=== PATIENT | male | born 1995 | race African-American/Black ===

== ENCOUNTER 2023-12-20 21:54 | Emergency (ER) | payer MEDICAID ==
[~2023-12-20] VITALS: Ht 172.7 cm; Wt 54.4 kg
[2023-12-20 21:56] VITALS: BP_SYST 120; PULSE 110; RESP 22; TEMP 98; O2SAT 92
[2023-12-20] MEDS ORDERED: ALBMDI INH (22:27)
[2023-12-20] MEDS ORDERED: PRED20TA PO (22:27)
[2023-12-20 22:36] VITALS: BP_SYST 121; PULSE 101; RESP 22; TEMP 98; O2SAT 93
== END 2023-12-20 22:37 | disposition home or self-care (01) ==
LOC: SED 21:54
DX: J45.901 Unspecified asthma with (acute) exacerbation (principal); Z79.899 Other long term (current) drug therapy
CPT/HCPCS: 99283

== ENCOUNTER 2023-12-21 11:30 | Emergency (ER) | payer MEDICAID ==
[~2023-12-21] VITALS: Ht 175.3 cm; Wt 63.5 kg
[~2023-12-21 11:30] MED LIST: ALBMDI INH; PRED20TA PO
[2023-12-21 11:40] VITALS: BP_SYST 129; PULSE 88; RESP 28; TEMP 98; O2SAT 86
[2023-12-21] MEDS: ALBUTEROL SULFATE 0.083% 2.5 MG/3 ML VIAL.NEB INH ONE (11:59)
[2023-12-21] MEDS: IPRATROPIUM BROM 0.5 MG/2.5 ML VIAL.NEB (ATROVENT) INH ONE (11:59)
[2023-12-21] MEDS: DEXAMETHASONE SOD PHOSPHATE 10 MG/ML VIAL PO ONE (12:18)
[2023-12-21 15:26] VITALS: BP_SYST 118; PULSE 95; RESP 18; TEMP 98; O2SAT 98
== END 2023-12-21 15:07 | disposition home or self-care (01) ==
LOC: SED 11:30
DX: J45.901 Unspecified asthma with (acute) exacerbation (principal); R06.02 Shortness of breath; Z79.899 Other long term (current) drug therapy
CPT/HCPCS: 99291; 94640; J1100